=== PATIENT | female | born 1975 | race Caucasian/White ===

== ENCOUNTER 2021-03-18 05:41 | Emergency (ER) | payer BC ==
[~2021-03-18] VITALS: Ht 162.6 cm; Wt 94.5 kg
[~2021-03-18 05:41] MED LIST: CHLO10MO PO; CLIN150C8 PO; CYCL-1 PO; HYDR-4353 PO; NO HOME MEDS
[2021-03-18] MEDS ORDERED: ketorolac trometh inj. 60 MG/2 ML VIAL IM ONE (06:30)
[2021-03-18] MEDS ORDERED: ketorolac trometh. 30mg/ml inj. IM ONE (06:40)
[2021-03-18 06:51] LABS: BASOPHILS # (AUTO) 0.1 X10'3 (0-0.2); EOSINOPHILS # (AUTO) 0.2 X10'3 (0-0.9); HEMATOCRIT 39.3 % (35.0-45.0); HEMOGLOBIN 13.5 g/dl (12.0-16.0); LYMPHOCYTES # (AUTO) 5.2 X10'3 (1.1-4.8); LYMPHOCYTES % (AUTO) 43.6 % (21-51); MEAN CORPUSCULAR HEMOGLOBIN 30.3 PG (27.0-31.0); MEAN CORPUSCULAR HGB CONC 34.3 g/dL (33.0-36.5); MEAN CORPUSCULAR VOLUME 88.3 FL (78-98); MEAN PLATELET VOLUME 8.5 FL (7.4-10.4); MONOCYTES # (AUTO) 0.7 X10'3 (0-0.9); NEUTROPHILS # (AUTO) 5.7 X10'3 (1.8-7.7); NEUTROPHILS % (AUTO) 47.4 % (42-75); PLATELET COUNT 389 X10'3 (140-440); RED BLOOD COUNT 4.45 X10'6 (4.20-5.60)
[2021-03-18 06:57] LABS: ALANINE AMINOTRANSFERASE 31 U/L (12-78); ALBUMIN 3.6 G/DL (3.4-5.0); ALKALINE PHOSPHATASE 116 IU/L (46-116); ANION GAP 9 (8-16); ASPARTATE AMINO TRANSFERASE 16 U/L (10-37); BILIRUBIN,TOTAL 0.2 MG/DL (0.1-1.0); BLOOD UREA NITROGEN 11 MG/DL (7-18); BUN/CREATININE RATIO 13.9 (6.6-38.0); CHLORIDE 102 MMOL/L (99-107); CREATININE 0.79 MG/DL (0.40-0.90); GLUCOSE 131 MG/DL (70-104); POTASSIUM 3.8 MMOL/L (3.5-5.1); SODIUM 139 MMOL/L (135-145); TOTAL CARBON DIOXIDE 28.2 MMOL/L (24-32); TOTAL PROTEIN 7.3 G/DL (6.4-8.2); eGFR 78 ML/MIN
[2021-03-18 08:10] VITALS: BP 156/94
== END 2021-03-18 08:13 | disposition home or self-care (01) ==
LOC: ER 05:42
DX: R60.0 Localized edema (principal); M54.41 Lumbago with sciatica, right side; G89.29 Other chronic pain; F17.200 Nicotine dependence, unspecified, uncomplicated; Z88.5 Allergy status to narcotic agent; Z79.899 Other long term (current) drug therapy
CPT/HCPCS: 36415; 80053; 85025; 93005; 96372; 99284; J1885